=== PATIENT | male | born 1990 | race Caucasian/White ===

== ENCOUNTER 2017-12-21 16:37 | Emergency (ER) | payer MEDICAID, OTHER ==
[~2017-12-21] VITALS: Ht 182.9 cm; Wt 77.0 kg
[2017-12-21] MEDS ORDERED: HYDROCODONE/ACETAMINOPHEN 5/325MG TABLET PO ONE (17:30)
[2017-12-21] MEDS ORDERED: BACITRACIN ZINC OINT UDPKT TOP ONE (17:45)
[2017-12-21 17:57] VITALS: BP 129/77
== END 2017-12-21 17:58 | disposition home or self-care (01) ==
LOC: ER 17:50
DX: S01.85XA Open bite of other part of head, initial encounter (principal); S00.31XA Abrasion of nose, initial encounter; F17.200 Nicotine dependence, unspecified, uncomplicated; J45.909 Unspecified asthma, uncomplicated; W54.0XXA Bitten by dog, initial encounter; Y93.89 Activity, other specified; Y99.8 Other external cause status; Y92.89 Other specified places as the place of occurrence of the external cause; Z98.890 Other specified postprocedural states; Z59.0 Homelessness
CPT/HCPCS: 99283